=== PATIENT | female | born 1990 | race African-American/Black ===

== ENCOUNTER 2017-06-09 05:01 | Emergency (ER) | payer SELFPAY ==
[2017-06-09] MEDS ORDERED: Mag-Al Plus 1200 MG/1200 MG/120 MG/30 ML UDCUP ONE (05:31)
[2017-06-09] MEDS ORDERED: Lidocaine Viscous Sol 2% 15 ml UD Cup ONE (05:31)
[2017-06-09] MEDS ORDERED: Ondansetron HCl/PF 4 MG/2 ML Vial ONE (05:31)
[2017-06-09] MEDS ORDERED: Famotidine/PF 20 mg/2ml Vial ONE (05:31)
[2017-06-09 06:09] LABS: #Eosinphils 0.1 thou/uL (0.0-0.7); #Monocytes 0.3 thou/uL (0.11-0.59); #Neutrophils 5.4 thou/uL (1.40-6.50); %Basophils 0.5 % (0.0-1.0); %Eosinophils 1.5 % (0.0-10.0); %Monocytes 4.3 % (0.0-10.0); %Neutrophils 68.7 % (42.0-75.0); Hemoglobin 13.4 g/dL (12.0-16.0); Mean Corpuscular HGB CONC 31.8 g/dL (32.0-36.0); Mean Corpuscular Hemoglobin 26.2 pg (27.0-31.0); Mean Corpuscular Volume 82.3 fl (81.0-99.0); Mean Platelet Volume 6.8 fL (7.4-10.4); Platelet Count 259 thou/uL (130-400); RBC Distribution Width 12.7 % (11.5-14.5); Red Blood Cell (RBC) Count 5.12 mill/uL (4.20-5.40); White Blood Cell (WBC) Count 7.9 thou/uL (4.8-10.8)
[2017-06-09 06:29] LABS: Bilirubin Negative (Negative); Blood, Urine Small (Negative); Clarity Clear (Clear); Glucose, Urine (Dipstick) Negative (Negative); Leukocyte Small (Negative); Nitrite Negative (Negative); Protein, Urine (Dipstick) 30 mg/dL (Neg-Trace); pH, Urine 6.5 (5.0-9.0)
[2017-06-09 06:30] LABS: Bacteria/HPF 1+ HPF (None Seen)
[2017-06-09 06:30] LABS: ALT (SGPT) 22 U/L (8-55); AST (SGOT) 54 U/L (5-34); Albumin 4.1 g/dL (3.5-5.0); Alkaline Phosphatase 85 U/L (40-150); Anion Gap 13 mmol/L (10-20); BUN (Urea Nitrogen) 7 mg/dL (7.0-18.7); Bilirubin, Total 0.7 mg/dL (0.2-1.2); Calc. Creatinine Clearance 0 mL/min (70-130); Carbon Dioxide 22 mmol/L (22-29); Chloride 106 mmol/L (98-107); Estimated GFR-MDRD Greater than 90; Globulin 3.4 g/dL (2.4-3.5); Glucose 148 mg/dL (70-105); Lipase 19 U/L (8-78); Potassium 3.2 mmol/L (3.5-5.1); Protein, Total 7.5 g/dL (6.0-8.3); Sodium 138 mmol/L (136-145)
[2017-06-09 06:34] LABS: Pregnancy Test - Urine (BHCG) Negative (Negative); Pregu Control Background? CLEAR/WHITE (CLR/WHITE); Pregu Control Bar Appear? YES (CONTROL BAR)
[2017-06-09] MEDS ORDERED: Potassium Chloride 20 MEQ TAB ONE (06:35)
== END 2017-06-09 06:53 | disposition home or self-care (01) ==
LOC: NAV ERS 05:01
DX: K29.00 Acute gastritis without bleeding (principal); K80.20 Calculus of gallbladder without cholecystitis without obstruction; E87.6 Hypokalemia
CPT/HCPCS: 36415; 80053; 81003; 81015; 81025; 83690; 85025; 96374; 96375; J2405; S0028

== ENCOUNTER 2017-09-21 16:07 | Emergency (ER) | payer SELFPAY ==
[2017-09-21] MEDS ORDERED: Ibuprofen 800 MG TAB ONE (16:37)
[2017-09-21] MEDS ORDERED: Acetaminophen 325 MG TAB ONE (16:38)
== END 2017-09-21 17:26 | disposition home or self-care (01) ==
LOC: NAV ERS 16:07
DX: J11.1 Influenza due to unidentified influenza virus with other respiratory manifestations (principal); Z79.899 Other long term (current) drug therapy
CPT/HCPCS: 99283

== ENCOUNTER 2017-11-28 00:15 | Emergency (ER) | payer SELFPAY ==
[2017-11-28 00:37] LABS: Bilirubin Negative (Negative); Blood, Urine Negative (Negative); Clarity Clear (Clear); Glucose, Urine (Dipstick) Negative (Negative); Leukocyte Small (Negative); Nitrite Negative (Negative); Protein, Urine (Dipstick) 100 mg/dL (Neg-Trace); Specific Gravity, Urine 1.025 (1.005-1.030); pH, Urine 5.5 (5.0-9.0)
[2017-11-28] MEDS ORDERED: Lidocaine Viscous Sol 2% 15 ml UD Cup ONE (00:37)
[2017-11-28] MEDS ORDERED: Mag-Al Plus 1200 MG/1200 MG/120 MG/30 ML UDCUP ONE (00:37)
[2017-11-28 00:41] LABS: Bacteria/HPF 1+ HPF (None Seen); RBC/HPF None Seen HPF (0-3); Squamous Epithelial 0-3 HPF (0-3)
== END 2017-11-28 01:02 | disposition home or self-care (01) ==
LOC: NAV ERS 00:15
DX: N39.0 Urinary tract infection, site not specified (principal); R10.13 Epigastric pain
CPT/HCPCS: 81003; 81015; 99284

== ENCOUNTER 2018-08-28 03:22 | Emergency (ER) | payer SELFPAY | END 2018-08-28 03:50 | disposition home or self-care (01) | LOC: NAV ERS 03:22 | DX: K02.9 Dental caries, unspecified (principal) | CPT/HCPCS: 99282 ==

== ENCOUNTER 2019-01-18 08:53 | Emergency (ER) | payer SELFPAY | END 2019-01-18 09:30 | disposition home or self-care (01) | LOC: NAV ERS 08:53 | DX: K02.9 Dental caries, unspecified (principal) | CPT/HCPCS: 99281 ==

== ENCOUNTER 2019-04-25 08:27 | Emergency (ER) | payer SELFPAY ==
[2019-04-25] MEDS ORDERED: Sodium Chloride 0.9% 1,000 ML ONE (09:02)
[2019-04-25] MEDS ORDERED: Acetaminophen 500 MG TAB ONE (09:02)
[2019-04-25 09:10] LABS: Bilirubin Negative (Negative); Blood, Urine Negative (Negative); Clarity Clear (Clear); Glucose, Urine (Dipstick) Negative (Negative); Leukocyte Moderate (Negative); Nitrite Negative (Negative); Protein, Urine (Dipstick) Negative (Neg-Trace)
[2019-04-25 09:36] LABS: Bacteria/HPF 2+ HPF (None Seen); RBC/HPF None Seen HPF (0-3)
[2019-04-25 10:00] LABS: #Eosinphils 0.1 thou/uL (0.0-0.7); #Lymphocytes 1.6 thou/uL (1.20-3.40); #Monocytes 0.3 thou/uL (0.11-0.59); %Basophils 0.9 % (0.0-1.0); %Lymphocytes 32.8 % (21.0-51.0); %Monocytes 5.9 % (0.0-10.0); %Neutrophils 59.4 % (42.0-75.0); Hemoglobin 13.3 g/dL (12.0-16.0); Mean Corpuscular HGB CONC 31.8 g/dL (32.0-36.0); Mean Corpuscular Hemoglobin 26.3 pg (27.0-31.0); Mean Corpuscular Volume 82.8 fL (78.0-98.0); Mean Platelet Volume 7.2 fL (7.4-10.4); Platelet Count 270 thou/uL (130-400); RBC Distribution Width 12.5 % (11.5-14.5); Red Blood Cell (RBC) Count 5.06 mill/uL (4.20-5.40)
[2019-04-25 10:01] LABS: Pregnancy Test - Urine (BHCG) Negative (Negative)
[2019-04-25 10:02] LABS: Pregu Control Background? CLEAR/WHITE (CLR/WHITE); Pregu Control Bar Appear? YES (CONTROL BAR); Specific Gravity 1.015 (1.002-1.036)
[2019-04-25 10:03] LABS: ALT (SGPT) 18 U/L (8-55); AST (SGOT) 23 U/L (5-34); Albumin 4.5 g/dL (3.5-5.0); Alkaline Phosphatase 83 U/L (40-150); Anion Gap 14 mmol/L (10-20); BUN (Urea Nitrogen) 8 mg/dL (7.0-18.7); Bilirubin, Total 0.8 mg/dL (0.2-1.2); Calc. Creatinine Clearance 0 mL/min (70-130); Calcium 9.7 mg/dL (7.8-10.44); Carbon Dioxide 24 mmol/L (22-29); Chloride 104 mmol/L (98-107); Estimated GFR-MDRD Greater than 90; Globulin 3.5 g/dL (2.4-3.5); Glucose 91 mg/dL (70-105); Potassium 4.1 mmol/L (3.5-5.1); Sodium 138 mmol/L (136-145)
[2019-04-25] MEDS ORDERED: Cephalexin 250 MG CAP ONE (10:22)
[2019-04-25] MEDS ORDERED: Ketorolac Tromethamine 30 MG/ML VIAL ONE (10:22)
== END 2019-04-25 10:40 | disposition home or self-care (01) ==
LOC: NAV ERS 08:27
DX: N39.0 Urinary tract infection, site not specified (principal); R51 Headache; R79.89 Other specified abnormal findings of blood chemistry
CPT/HCPCS: 36415; 80053; 81003; 81015; 81025; 85025; 86140; 87086; 87804; 96361; 96374; J1885; J7050

== ENCOUNTER 2019-08-31 20:14 | Emergency (ER) | payer SELFPAY ==
[2019-08-31] MEDS ORDERED: diphenhydrAMINE 25 MG CAP ONE (20:28)
[2019-08-31] MEDS ORDERED: predniSONE 20 MG TAB ONE (21:09)
== END 2019-08-31 21:14 | disposition home or self-care (01) ==
LOC: NAV ERS 20:14
DX: R21 Rash and other nonspecific skin eruption (principal)
CPT/HCPCS: 99282; J7512; Q0163

== ENCOUNTER 2019-10-26 15:47 | Emergency (ER) | payer OTHER, SELFPAY ==
[2019-10-26] MEDS ORDERED: Ketorolac Tromethamine 30 MG/ML VIAL ONE (16:13)
[2019-10-26 16:26] LABS: Bilirubin Negative (Negative); Blood, Urine Large (Negative); Glucose, Urine (Dipstick) Negative (Negative); Leukocyte Small (Negative); Nitrite Negative (Negative); Protein, Urine (Dipstick) Negative (Neg-Trace); Urobilinogen 0.2 mg/dL (Less than 2)
[2019-10-26 16:41] LABS: Bacteria/HPF Rare-Few HPF (None Seen); Clarity SL HAZY (Clear); WBC/HPF 0-3 HPF (0-3)
[2019-10-26 16:42] LABS: Pregnancy Test - Urine (BHCG) Negative (Negative); Pregu Control Background? CLEAR/WHITE (CLR/WHITE); Pregu Control Bar Appear? YES (CONTROL BAR)
[2019-10-26 16:53] LABS: #Basophils 0.1 thou/uL (0.0-0.2); #Eosinphils 0.1 thou/uL (0.0-0.7); #Monocytes 0.6 thou/uL (0.11-0.59); #Neutrophils 5.5 thou/uL (1.40-6.50); %Basophils 0.7 % (0.0-1.0); %Eosinophils 1.4 % (0.0-10.0); %Lymphocytes 32.2 % (21.0-51.0); %Monocytes 6.2 % (0.0-10.0); %Neutrophils 59.5 % (42.0-75.0); Hemoglobin 13.9 g/dL (12.0-16.0); Mean Corpuscular HGB CONC 32.5 g/dL (32.0-36.0); Mean Corpuscular Volume 83.1 fL (78.0-98.0); Mean Platelet Volume 7.6 fL (7.4-10.4); Platelet Count 291 thou/uL (130-400); RBC Distribution Width 12.2 % (11.5-14.5); Red Blood Cell (RBC) Count 5.15 mill/uL (4.20-5.40); White Blood Cell (WBC) Count 9.3 thou/uL (4.8-10.8)
[2019-10-26 17:06] LABS: ALT (SGPT) 9 U/L (8-55); AST (SGOT) 15 U/L (5-34); Albumin 4.4 g/dL (3.5-5.0); Alkaline Phosphatase 80 U/L (40-110); Anion Gap 17 mmol/L (10-20); BUN (Urea Nitrogen) 8 mg/dL (7.0-18.7); Bilirubin, Total 0.5 mg/dL (0.2-1.2); Calc. Creatinine Clearance 0 mL/min (70-130); Calcium 9.6 mg/dL (7.8-10.44); Carbon Dioxide 22 mmol/L (22-29); Chloride 103 mmol/L (98-107); Estimated GFR-MDRD Greater than 90; Globulin 3.6 g/dL (2.4-3.5); Glucose 96 mg/dL (70-105); Lipase 22 U/L (8-78); Potassium 3.8 mmol/L (3.5-5.1); Sodium 138 mmol/L (136-145)
--- NOTE | 2019-10-26 17:40 | CT ---
CT OF THE ABDOMEN AND PELVIS WITHOUT IV CONTRAST INDICATION: Nausea vomiting with right upper quadrant abdominal pain COMPARISON: CT abdomen pelvis with contrast dated July 16, 2015 FINDINGS: This examination is limited for the evaluation of solid organs and vascular structures due to the lac k of intravenous contrast. ABDOMEN: Lung bases: Clear Liver: No focal lesion. Gallbladder: Surgically absent Pancreas: Normal. Adrenal glands: Normal. Spleen: Normal. Kidneys and ureters: Normal. No hydronephrosis. Vasculature: Normal. Lymph nodes:No lymphadenopathy. Free fluid in abdomen:No free fluid is evident. PELVIS: Small and large bowel: Normal Appendix:Normal Bladder: Normal. Rectal and perirectal soft tissues:Normal. Reproductive structures: Normal. Free fluid in pelvis: No free fluid is evident. Lymphadenopathy pelvis: No lymphadenopathy is evident. Osseous structures: No acute osseous abnormality. No destructive osteolytic or osteoblastic lesion i s identified. There is scattered degenerative and osteoarthritic changes. Soft tissues:Normal. IMPRESSION: 1. No acute abnormality.
== END 2019-10-26 17:55 | disposition home or self-care (01) ==
LOC: NAV ERS 15:47
DX: S39.011A Strain of muscle, fascia and tendon of abdomen, initial encounter (principal); R11.2 Nausea with vomiting, unspecified; X58.XXXA Exposure to other specified factors, initial encounter
CPT/HCPCS: 74176; 80053; 81003; 81015; 81025; 83690; 85025; 96374; J1885

== ENCOUNTER 2019-11-29 07:44 | Emergency (ER) | payer SELFPAY ==
[2019-11-29] MEDS ORDERED: Acetaminophen 500 MG TAB ONE (07:58)
[2019-11-29] MEDS ORDERED: Ibuprofen 800 MG TAB ONE (07:58)
== END 2019-11-29 09:07 | disposition home or self-care (01) ==
LOC: NAV ERS 07:44
DX: J06.9 Acute upper respiratory infection, unspecified (principal); B34.9 Viral infection, unspecified
CPT/HCPCS: 87804; 99283

== ENCOUNTER 2020-02-12 14:39 | Emergency (ER) | payer OTHER, SELFPAY ==
[~2020-02-12 14:39] MED LIST: Iopamidol 370 76% 100 ML VIAL ONE
[2020-02-12 15:22] LABS: BHCG - Serum Negative (NEGATIVE); Pregs Control Bar Appear? YES (CONTROL BAR)
[2020-02-12 15:23] LABS: ALT (SGPT) 12 U/L (8-55); AST (SGOT) 16 U/L (5-34); Albumin 4.1 g/dL (3.5-5.0); Alkaline Phosphatase 73 U/L (40-110); Anion Gap 15 mmol/L (10-20); BUN (Urea Nitrogen) 6 mg/dL (7.0-18.7); Bilirubin, Total 0.3 mg/dL (0.2-1.2); Calc. Creatinine Clearance 0 mL/min (70-130); Calcium 9.3 mg/dL (7.8-10.44); Carbon Dioxide 23 mmol/L (22-29); Chloride 106 mmol/L (98-107); Estimated GFR-MDRD Greater than 90; Globulin 3.5 g/dL (2.4-3.5); Glucose 91 mg/dL (70-105); Protein, Total 7.6 g/dL (6.0-8.3); Sodium 140 mmol/L (136-145)
[2020-02-12 15:29] LABS: #Basophils 0.1 thou/uL (0.0-0.2); #Eosinphils 0.1 thou/uL (0.0-0.7); #Lymphocytes 2.5 thou/uL (1.20-3.40); #Monocytes 0.5 thou/uL (0.11-0.59); #Neutrophils 5.2 thou/uL (1.40-6.50); %Basophils 0.9 % (0.0-1.0); %Eosinophils 1.4 % (0.0-10.0); %Monocytes 6.3 % (0.0-10.0); %Neutrophils 61.4 % (42.0-75.0); Hemoglobin 12.7 g/dL (12.0-16.0); Mean Corpuscular HGB CONC 30.8 g/dL (32.0-36.0); Mean Corpuscular Hemoglobin 26.6 pg (27.0-31.0); Mean Corpuscular Volume 86.3 fL (78.0-98.0); Mean Platelet Volume 7.8 fL (7.4-10.4); Platelet Count 297 thou/uL (130-400); RBC Distribution Width 12.5 % (11.5-14.5); White Blood Cell (WBC) Count 8.4 thou/uL (4.8-10.8)
--- NOTE | 2020-02-12 15:49 | RAD ---
PORTABLE CHEST: 02/12/20 HISTORY: Chest pain. COMPARISON: 2009 exam. Overlying soft tissue attenuation limits the exam. No evidence of infiltrate. Heart and mediastinum unremarkable. IMPRESSION: Exam is degraded due to soft tissue attenuation. If there is concern of pneumonia, recommend upright PA and lateral views of chest. Otherwise, the portable exam is unremarkable. POS: [facility]
[2020-02-12] MEDS ORDERED: Ketorolac Tromethamine 30 MG/ML VIAL ONE (17:08)
--- NOTE | 2020-02-12 17:33 | CT ---
CT ANGIOGRAM CHEST WITH CONTRAST: 02/12/20 HISTORY: Shortness of breath and chest pain. Elevated D-dimer. COMPARISON: Radiograph of the chest same day for reference. FINDINGS: CT angiogram chest performed after the intravenous administration of contrast. 3D rendering provided. Mildly prominent residual thymic tissue in the anterior mediastinum. No proximal segmental pulmonary arterial filling defect although this evaluation is somewhat limited due to markedly delayed phase of contrast. No pericardial effusion. Upper abdomen evaluation is unremarkable. Mild lung hypoinflation. No confluent air space consolidation, pneumothorax or effusion. Thoracic spine is intact. Sternum and manubrium are intact. No acute displaced rib fracture. IMPRESSION: 1. No pulmonary embolism. 2. No evidence for pneumonia. 3. Mild thymic hyperplasia. POS: [facility]
== END 2020-02-12 17:20 | disposition home or self-care (01) ==
LOC: NAV ERS 14:39
DX: R07.9 Chest pain, unspecified (principal); R73.03 Prediabetes; Z79.84 Long term (current) use of oral hypoglycemic drugs
CPT/HCPCS: 36415; 71045; 71275; 80053; 84484; 84703; 85025; 85379; 93005; 94760; 96374; J1885; Q9967

== ENCOUNTER 2020-02-22 08:15 | Emergency (ER) | payer SELFPAY ==
[2020-02-22 08:43] LABS: #Eosinphils 0.1 thou/uL (0.0-0.7); #Lymphocytes 1.8 thou/uL (1.20-3.40); #Monocytes 0.3 thou/uL (0.11-0.59); #Neutrophils 3.2 thou/uL (1.40-6.50); %Basophils 0.5 % (0.0-1.0); %Lymphocytes 32.8 % (21.0-51.0); %Monocytes 5.9 % (0.0-10.0); %Neutrophils 58.8 % (42.0-75.0); Hemoglobin 12.6 g/dL (12.0-16.0); Mean Corpuscular HGB CONC 30.3 g/dL (32.0-36.0); Mean Corpuscular Hemoglobin 26.3 pg (27.0-31.0); Mean Corpuscular Volume 86.6 fL (78.0-98.0); Mean Platelet Volume 7.7 fL (7.4-10.4); Platelet Count 307 thou/uL (130-400); RBC Distribution Width 12.5 % (11.5-14.5); Red Blood Cell (RBC) Count 4.79 mill/uL (4.20-5.40); White Blood Cell (WBC) Count 5.4 thou/uL (4.8-10.8)
[2020-02-22 09:04] LABS: ALT (SGPT) 14 U/L (8-55); AST (SGOT) 17 U/L (5-34); Albumin 4.1 g/dL (3.5-5.0); Alkaline Phosphatase 72 U/L (40-110); Anion Gap 14 mmol/L (10-20); BUN (Urea Nitrogen) 5 mg/dL (7.0-18.7); Bilirubin, Total 0.5 mg/dL (0.2-1.2); Calc. Creatinine Clearance 0 mL/min (70-130); Calcium 9.2 mg/dL (7.8-10.44); Carbon Dioxide 26 mmol/L (22-29); Chloride 104 mmol/L (98-107); Estimated GFR-MDRD Greater than 90; Globulin 3.5 g/dL (2.4-3.5); Glucose 94 mg/dL (70-105); Lipase 16 U/L (8-78); Potassium 4.2 mmol/L (3.5-5.1); Protein, Total 7.6 g/dL (6.0-8.3); Sodium 140 mmol/L (136-145)
[2020-02-22 10:07] LABS: BHCG - Serum Negative (NEGATIVE); Pregs Control Bar Appear? YES (CONTROL BAR)
[2020-02-22 10:17] LABS: Bilirubin Negative (Negative); Blood, Urine Large (Negative); Clarity Clear (Clear); Glucose, Urine (Dipstick) Negative (Negative); Leukocyte Negative (Negative); Nitrite Negative (Negative); Protein, Urine (Dipstick) 30 mg/dL (Neg-Trace); Urobilinogen 0.2 mg/dL (Less than 2)
[2020-02-22 10:18] LABS: Bacteria/HPF None Seen HPF (None Seen); RBC/HPF Greater than 50 HPF (0-3); Squamous Epithelial 0-3 HPF (0-3); WBC/HPF None Seen HPF (0-3)
--- NOTE | 2020-02-22 11:16 | CT ---
CT ABDOMEN AND PELVIS WITHOUT CONTRAST: HISTORY: Right upper quadrant pain that radiates to back. Pain has been present for five days. History of prio r cholecystectomy. COMPARISON: 11/15/2019 FINDINGS: Lack of intravenous contrast limits sensitivity for evaluation of the parenchymal organs and vascular structures. The lung bases are clear. Post cholecystectomy changes are seen. The liver, spleen, pancreas and bilateral adrenal glands demonstrate a grossly normal nonenhanced CT appearance. No renal or ureteral calculi are seen bilaterally and there is no hydronephrosis. The urinary bladder has a normal CT appearance. The uterus has a normal CT appearance. There is mild nonspecific prominence of the left ovary but thi s is similar to the prior exam. The appendix is visualized and is normal in caliber. Loops of small bowel are normal in caliber. CT abdomen and pelvis is overall stable when compared to the prior exam. IMPRESSION: 1. No renal or ureteral calculi are seen bilaterally. 2. No CT evidence of appendicitis. 3. Post cholecystectomy changes. 4. Trace amount of free fluid in the pelvis, likely physiologic in origin. POS: [facility]
== END 2020-02-22 11:10 | disposition home or self-care (01) ==
LOC: NAV ERS 08:15
DX: R10.11 Right upper quadrant pain (principal); R31.9 Hematuria, unspecified; R10.816 Epigastric abdominal tenderness; R73.03 Prediabetes; Z79.84 Long term (current) use of oral hypoglycemic drugs
CPT/HCPCS: 36415; 74176; 80053; 81003; 81015; 83690; 84703; 85025; 93005; 94760

== ENCOUNTER 2020-04-13 13:08 | Emergency (ER) | payer MEDICAID, OTHER ==
[2020-04-14 14:38] LABS: SARS-CoV-2 MS2 Positive; SARS-CoV-2 N Gene Positive; SARS-CoV-2 S Gene Positive; SARS-CoV-2 orf1ab Positive
== END 2020-04-13 14:10 | disposition home or self-care (01) ==
LOC: NAV ERS 13:08
DX: U07.1 COVID-19 (principal); E11.9 Type 2 diabetes mellitus without complications; Z79.84 Long term (current) use of oral hypoglycemic drugs
CPT/HCPCS: 87635; 99284; U0003

== ENCOUNTER 2021-01-13 11:33 | Emergency (ER) | payer MEDICAID ==
[2021-01-13] MEDS ORDERED: Ketorolac Tromethamine 60 MG/2 ML VIAL ONE (12:44)
[2021-01-13] MEDS ORDERED: Ondansetron ODT 4 MG TAB ONE (12:44)
== END 2021-01-13 13:05 | disposition home or self-care (01) ==
LOC: NAV ERS 11:33
DX: R51.9 Headache, unspecified (principal)
CPT/HCPCS: 96372; 99283; J1885; Q0162

== ENCOUNTER 2021-07-07 20:41 | Emergency (ER) | payer MEDICAID, SELFPAY ==
[2021-07-07] MEDS ORDERED: Sulfameth/Trimethoprim DS 800-160mg TAB ONE (21:30)
[2021-07-07] MEDS ORDERED: traMADol HCl 50 MG TAB ONE (21:30)
== END 2021-07-07 21:35 | disposition home or self-care (01) ==
LOC: NAV ERS 20:41
DX: L02.412 Cutaneous abscess of left axilla (principal); L02.411 Cutaneous abscess of right axilla
CPT/HCPCS: 99283

== ENCOUNTER 2021-10-08 11:16 | Emergency (ER) | payer MEDICAID, SELFPAY ==
[2021-10-08] MEDS ORDERED: Sodium Chloride 0.9% 1,000 ML ONE (11:50)
[2021-10-08] MEDS ORDERED: Ondansetron PF 4 MG/2 ML Vial ONE (11:50)
[2021-10-08] MEDS ORDERED: Pantoprazole 40 MG VIAL ONE (11:50)
[2021-10-08 11:53] LABS: Bilirubin Small (Negative); Blood, Urine Large (Negative); Clarity Cloudy (Clear); Glucose, Urine (Dipstick) Negative (Negative); Ketone, Urine Negative (Negative); Leukocyte Negative (Negative); Nitrite Negative (Negative); Protein, Urine (Dipstick) 100 mg/dL (Neg-Trace); Urobilinogen 0.2 mg/dL (Less than 2)
[2021-10-08 12:02] LABS: Bacteria/HPF Rare-Few HPF (None Seen); RBC/HPF Greater than 50 HPF (0-3); Squamous Epithelial 0-3 HPF (0-3); WBC/HPF 0-3 HPF (0-3)
[2021-10-08 12:08] LABS: Pregnancy Test - Urine (BHCG) Negative (Negative); Pregu Control Background? CLEAR/WHITE (CLR/WHITE); Pregu Control Bar Appear? YES (CONTROL BAR)
[2021-10-08 12:24] LABS: ALT (SGPT) 10 U/L (8-55); AST (SGOT) 13 U/L (5-34); Albumin 4.2 g/dL (3.5-5.0); Alkaline Phosphatase 77 U/L (40-110); Anion Gap 15 mmol/L (10-20); BUN (Urea Nitrogen) 7 mg/dL (7.0-18.7); Calc. Creatinine Clearance 0 mL/min (70-130); Calcium 9.1 mg/dL (7.8-10.44); Carbon Dioxide 23 mmol/L (22-29); Chloride 104 mmol/L (98-107); Globulin 3.9 g/dL (2.4-3.5); Glucose 106 mg/dL (70-105); Lipase 11 U/L (8-78); Potassium 3.8 mmol/L (3.5-5.1); Protein, Total 8.1 g/dL (6.0-8.3); Sodium 138 mmol/L (136-145)
[2021-10-08 12:28] LABS: #Lymphocytes 0.4 thou/uL (1.20-3.40); #Monocytes 0.3 thou/uL (0.11-0.59); #Neutrophils 9.3 thou/uL (1.40-6.50); %Basophils 0.3 % (0.0-1.0); %Eosinophils 0.4 % (0.0-10.0); %Neutrophils 92.4 % (42.0-75.0); Hemoglobin 14.2 g/dL (12.0-16.0); Mean Corpuscular HGB CONC 31.1 g/dL (32.0-36.0); Mean Corpuscular Hemoglobin 26.6 pg (27.0-31.0); Mean Corpuscular Volume 85.6 fL (78.0-98.0); Mean Platelet Volume 7.4 fL (7.4-10.4); Platelet Count 332 thou/uL (130-400); RBC Distribution Width 12.9 % (11.5-14.5); Red Blood Cell (RBC) Count 5.33 mill/uL (4.20-5.40); White Blood Cell (WBC) Count 10.1 thou/uL (4.8-10.8)
== END 2021-10-08 12:56 | disposition home or self-care (01) ==
LOC: NAV ERS 11:16
DX: A08.4 Viral intestinal infection, unspecified (principal)
CPT/HCPCS: 80053; 81003; 81015; 81025; 83690; 85025; 96374; 96375; C9113; J2405; J7050

== ENCOUNTER 2023-06-08 19:33 | Emergency (ER) | payer OTHER, SELFPAY ==
[2023-06-08 20:11] LABS: Bilirubin Negative (Negative); Blood, Urine Negative (Negative); Clarity Clear (Clear); Glucose, Urine (Dipstick) Negative (Negative); Ketone, Urine Negative (Negative); Leukocyte Small (Negative); Nitrite Negative (Negative); Pregnancy Test - Urine (BHCG) Negative (Negative); Protein, Urine (Dipstick) Negative (Neg-Trace); Specific Gravity, Urine 1.015 (1.005-1.030); Urobilinogen 0.2 mg/dL (Less than 2)
[2023-06-08 20:12] LABS: CAUTI Indications for Culture Pelvic or flank pain; Pregu Control Background? CLEAR/WHITE (CLR/WHITE); Pregu Control Bar Appear? YES (CONTROL BAR); Specific Gravity 1.015 (1.002-1.036)
[2023-06-08 20:20] LABS: Bacteria/HPF Rare-Few HPF (None Seen); RBC/HPF None Seen HPF (0-3); Urine Culture Reflex No No
[2023-06-08] MEDS ORDERED: Naproxen 500 MG TAB ONE (20:57)
[2023-06-08] MEDS ORDERED: Cyclobenzaprine 10 MG TAB ONE (20:57)
== END 2023-06-08 21:11 | disposition home or self-care (01) ==
LOC: NAV ERS 19:33
DX: S39.012A Strain of muscle, fascia and tendon of lower back, initial encounter (principal); S16.1XXA Strain of muscle, fascia and tendon at neck level, initial encounter; V43.52XA Car driver injured in collision with other type car in traffic accident, initial encounter
CPT/HCPCS: 72125; 72128; 72131; 81001; 81025

== ENCOUNTER 2023-10-18 09:49 | Emergency (ER) | payer MEDICAID, SELFPAY ==
[2023-10-18] MEDS ORDERED: Acetaminophen 500 MG TAB ONE (10:02)
[2023-10-18 11:10] LABS: SARS-CoV-2 NAA Rapid Test Not Detected (NotDetected)
[2023-10-18] MEDS ORDERED: Oseltamivir 75 MG CAP ONE (11:10)
== END 2023-10-18 12:01 | disposition home or self-care (01) ==
LOC: NAV ERS 09:49
DX: J10.1 Influenza due to other identified influenza virus with other respiratory manifestations (principal)
CPT/HCPCS: 87804; 99283; U0002

== ENCOUNTER 2024-06-04 20:13 | Emergency (ER) | payer BC, SELFPAY ==
[2024-06-04] MEDS ORDERED: Ketorolac Tromethamine 60 MG/2 ML VIAL ONE (21:41)
[2024-06-04] MEDS ORDERED: Orphenadrine Citrate 60 MG/2 ML VIAL ONE (21:41)
== END 2024-06-04 22:04 | disposition home or self-care (01) ==
LOC: NAV ERS 20:13
DX: M54.50 Low back pain, unspecified (principal); M54.6 Pain in thoracic spine; V43.62XA Car passenger injured in collision with other type car in traffic accident, initial encounter
CPT/HCPCS: 96372; 99283; J1885; J2360

== ENCOUNTER 2025-08-03 09:49 | Emergency (ER) | payer BC, OTHER ==
[2025-08-03 10:38] LABS: #Basophils 0.0 thou/uL (0.0-0.2); #Eosinophils 0.1 thou/uL (0.0-0.7); #Lymphocytes 1.7 thou/uL (1.20-3.40); #Monocytes 0.2 thou/uL (0.11-0.59); #Neutrophils 3.0 thou/uL (1.40-6.50); %Basophils 1.0 % (0.0-1.0); %Eosinophils 1.9 % (0.0-10.0); %Lymphocytes 34.0 % (21.0-51.0); %Monocytes 4.2 % (0.0-10.0); %Neutrophils 59.0 % (42.0-75.0); Hematocrit 39.7 % (36.0-47.0); Hemoglobin 12.9 g/dL (12.0-16.0); Mean Corpuscular Hemoglobin 26.8 pg (27.0-31.0); Mean Corpuscular Volume 82.5 fl (78.0-98.0); Platelet Count 317 10x3/uL (130-400); Red Blood Cell (RBC) Count 4.81 mill/uL (4.20-5.40); White Blood Cell (WBC) Count 5.1 10x3/uL (4.8-10.8)
[2025-08-03 10:44] LABS: Anion Gap 14 mmol/L (10-20); BUN (Urea Nitrogen) 7 mg/dL (7.0-18.7); Calc. Creatinine Clearance 0 mL/min (70-130); Calcium 8.8 mg/dL (7.8-10.44); Carbon Dioxide 22 mmol/L (22-29); Chloride 103 mmol/L (98-107); Glucose 129 mg/dL (70-105); Potassium 3.4 mmol/L (3.5-5.1); Sodium 136 mmol/L (136-145)
== END 2025-08-03 11:51 | disposition home or self-care (01) ==
LOC: NAV ERS 09:49
DX: E04.1 Nontoxic single thyroid nodule (principal)
CPT/HCPCS: 70491; 80048; 84443; 85025